=== PATIENT | female | born 1995 | race American Indian/Alaskan Native ===

== ENCOUNTER 2017-09-02 21:50 | Emergency (ER) | payer MEDICAID ==
[2017-09-02 22:01] VITALS: BP 112/64
[2017-09-03] MEDS ORDERED: TYLENOL/CODEINE PO ONE (02:12)
[2017-09-03] MEDS ORDERED: DELTASONE PO ONE (02:12)
--- NOTE | 2017-09-03 02:14 | Emergency Department Report ---
Minor Respiratory - HPI Chief Complaint: Upper Respiratory Infection Stated Complaint: FLU LIKE SX Time Seen by Provider: 09/03/17 02:11 Duration: 2 Days Severity: moderate Minor Respiratory: Yes Rhinorrhea, Yes Able to Tolerate Fluids, Yes Cough, Yes Chest Pain (with coughing), Yes Fever, No Sore Throat, No Ear Pain, No Sick Contacts ([employer]), No Hemoptysis, No Shortness of Breath Other History: Patient is a 22-year-old female states she works at a [employer] and the past couple of days as pain complaining of some intermittent nonproductive coughing and body aches. Patient states she noted she had a fever but did not measure. Patient also states she is able to drink fluids and eat okay. Patient states she thinks she got the flu vaccination but is unsure. She states that coughing become intermittent causing her some chest discomfort every time she coughs. She denies shortness of breath, nausea, vomiting, abdominal pain, chest pain, dizziness. ED Review of Systems ROS: Stated complaint: FLU LIKE SX Other details as noted in HPI Constitutional: fever, malaise. denies: chills Eyes: denies: eye pain, eye discharge, vision change ENT: congestion. denies: ear pain, throat pain Respiratory: cough. denies: shortness of breath, wheezing Cardiovascular: denies: chest pain, palpitations Endocrine: no symptoms reported Gastrointestinal: denies: abdominal pain, nausea, diarrhea Genitourinary: denies: urgency, dysuria, discharge Musculoskeletal: denies: back pain, joint swelling, arthralgia Skin: denies: rash, lesions Neurological: denies: headache, weakness, paresthesias Psychiatric: denies: anxiety, depression Hematological/Lymphatic: denies: easy bleeding, easy bruising ED Past Medical Hx - Past Medical History Previous Medical History?: Yes Hx Psychiatric Treatment: Yes (Depression) - Surgical History Past Surgical History?: No - Social History Smoking Status: Never Smoker Substance Use Type: None - Medications Home Medications: Home Medications Medication Instructions Recorded Confirmed Last Taken Type Acetamin/Codeine 120-12Mg/5 ml 5 ml PO TID PRN #60 ml 09/03/17 Unknown Rx [Tylenol/Codeine] Benzonatate [Tessalon Perles] 100 mg PO Q8HR #20 capsule 09/03/17 Unknown Rx guaiFENesin ER [Mucinex ER] 600 mg PO Q12H #24 tablet.er 09/03/17 Unknown Rx Minor Respiratory Exam - Exam General: Vital signs noted. No distress. Alert and acting appropriately. HEENT: Yes Moist Mucous Membranes, No Pharyngeal Erythema, No Pharyngeal Exudates, No Rhinorrhea, No Conjuctival Injection, No Frontal Tenderness, No Maxillary Tenderness Ear: Neither TM Bulge, Neither TM Erythema, Neither EAC Pain, Neither EAC Discharge Neck: Yes Supple, No Adenopathy Lungs: Yes Good Air Exchange, No Wheezes, No Ronchi, No Stridor, No Cough, No Labored Respirations, No Retractions, No Use of Accessory Muscles, No Other Abnormal Lung Sounds Heart: Yes Regular, No Murmur Abdomen: Yes Normal Bowel Sounds, No Tenderness, No Peritoneal Signs Skin: No Rash, No Edema Neurologic: Alert and oriented, no deficits. Musculoskeletal: Unremarkable. ED Course Vital Signs 09/02/17 21:55 Temperature 97.9 F Pulse Rate 96 H Respiratory 20 Rate Blood Pressure 112/64 O2 Sat by Pulse 99 Oximetry ED Medical Decision Making - Radiology Data Radiology results: report reviewed, image reviewed FINAL REPORT EXAM: XR CHEST ROUTINE 2V HISTORY: fever/cough TECHNIQUE: PA and lateral views of the chest were submitted. FINDINGS: The heart size and mediastinum appear normal. The lungs are clear. Pleural fluid is not seen. The bones and soft tissues are unremarkable. IMPRESSION: Within normal limits. Transcribed By: RB Dictated By: VIVIANA DELGADILLO MD Electronically Authenticated By: VIVIANA DELGADILLO MD Signed Date/Time: 09/02/17 8580 - Medical Decision Making 22-year-old female presents with flulike symptoms. Fever resolved no fever during the ED stay. cxr done in ED. UA/UPT negative. Discussed with pt symptomatic relief with [id number] medications. Discussed continue Motrin as needed for fever and pain. Discussed increase fluids and diet intake. Discussed rest much needed. Discussed daily vitamin C for immune booster. Discussed follow-up with early childhood in 3-5 days. Patient verbally states she understands and will comply the following instructions and follow-up Vital signs stable. Patient is in no acute distress Critical care attestation.: If time is entered above; I have spent that time in minutes in the direct care of this critically ill patient, excluding procedure time. ED Disposition Clinical Impression: Viral syndrome, Upper respiratory infection, Bronchitis Disposition: DC-01 TO HOME OR SELFCARE Is pt being admited?: No Does the pt Need Aspirin: No Condition: Stable Instructions: Upper Respiratory Infection (ED), Chronic Bronchitis (ED), Viral Syndrome (ED), Cold Symptoms (ED) Additional Instructions: Make sure to follow up with the primary care physician as discussed. Take all your medications as you've been prescribed. If you have any worsening symptoms or develop new symptoms please return to ED immediately. Prescriptions: Acetamin/Codeine 120-12Mg/5 ml [Tylenol/Codeine] 5 ml PO TID PRN #60 ml PRN Reason: Pain Benzonatate [Tessalon Perles] 100 mg PO Q8HR #20 capsule guaiFENesin ER [Mucinex ER] 600 mg PO Q12H #24 tablet.er Referrals: JANI RODRIGUEZ MD [Primary Care Provider] - 3-5 Days RORO SALINAS MD [Referring] - 3-5 Days [facility] [Outside] - 3-5 Days [facility] [Outside] - 3-5 Days [facility] [Outside] - 3-5 Days Forms: Accompanied Note, Work/School Release Form(ED) Time of Disposition: 03:58
[2017-09-03 03:15] LABS: Bilirubin,Urine NEG (Negative); Blood,Urine NEG (Negative); Color,Urine Yellow (Yellow); Hyaline Casts,Urine 1 /LPF; Mucus,Urine 3+ /HPF; Nitrite,Urine NEG (Negative)
[2017-09-03 03:17] LABS: HCG Qualitative,Urine Negative (Negative)
--- NOTE | 2017-09-03 03:34 | XRay Report ---
FINAL REPORT EXAM: XR CHEST ROUTINE 2V HISTORY: fever/cough TECHNIQUE: PA and lateral views of the chest were submitted. FINDINGS: The heart size and mediastinum appear normal. The lungs are clear. Pleural fluid is not seen. The bones and soft tissues are unremarkable. IMPRESSION: Within normal limits.
== END 2017-09-03 04:16 | disposition home or self-care (01) ==
LOC: ED 21:50
DX: B34.9 Viral infection, unspecified (principal); J40 Bronchitis, not specified as acute or chronic; J06.9 Acute upper respiratory infection, unspecified; F32.9 Major depressive disorder, single episode, unspecified
CPT/HCPCS: 71046; 81001; 81025; 99284; J7512

== ENCOUNTER 2017-12-29 13:51 | Emergency (ER) | payer MEDICAID ==
[2017-12-29 15:04] VITALS: BP 126/63
[2017-12-29] MEDS ORDERED: ZITHROMAX PO ONE (16:33)
[2017-12-29] MEDS ORDERED: ROCEPHIN IM ONE (16:33)
[2017-12-29] MEDS ORDERED: XYLOCAINE 1% MPF 5 mL INFILTRATI ONE (16:33)
[2017-12-29] MEDS ORDERED: FLAGYL PO ONE (16:33)
--- NOTE | 2017-12-29 16:38 | Emergency Department Report ---
ED Extremity Problem HPI - General Chief complaint: Extremity Injury, Lower Stated complaint: ANKLE PAIN Time Seen by Provider: 12/29/17 16:05 Source: patient Mode of arrival: Ambulatory Limitations: No Limitations - History of Present Illness Initial comments: Patient is a 22-year-old [place] female who tripped several days ago work and initially has some mild discomfort in her ankles. Patient states she is fine now but cannot return to work without medical clearance. Patient also has a mild vaginal discharge today and her boyfriend stated that he was diagnosed with STD. Patient states she is unsure which type. The patient was last missed her period within the last month. Patient denies any dysuria or fevers chills nausea vomiting. Regarding her ankles she is able to walk without pain there is no current swelling. - Related Data Previous Rx's Medication Instructions Recorded Last Taken Type Acetamin/Codeine 120-12Mg/5 ml 5 ml PO TID PRN #60 ml 09/03/17 Unknown Rx [Tylenol/Codeine] Benzonatate [Tessalon Perles] 100 mg PO Q8HR #20 capsule 09/03/17 Unknown Rx guaiFENesin ER [Mucinex ER] 600 mg PO Q12H #24 tablet.er 09/03/17 Unknown Rx Allergies Allergy/AdvReac Type Severity Reaction Status Date / Time No Known Allergies Allergy Unverified 09/02/17 22:01 ED Review of Systems ROS: Stated complaint: ANKLE PAIN Other details as noted in HPI Comment: All other systems reviewed and negative ED Past Medical Hx - Past Medical History Previous Medical History?: No Hx Psychiatric Treatment: Yes (Depression) - Surgical History Past Surgical History?: No - Social History Smoking Status: Current Every Day Smoker Substance Use Type: None - Medications Home Medications: Home Medications Medication Instructions Recorded Confirmed Last Taken Type Acetamin/Codeine 120-12Mg/5 ml 5 ml PO TID PRN #60 ml 09/03/17 Unknown Rx [Tylenol/Codeine] Benzonatate [Tessalon Perles] 100 mg PO Q8HR #20 capsule 09/03/17 Unknown Rx guaiFENesin ER [Mucinex ER] 600 mg PO Q12H #24 tablet.er 09/03/17 Unknown Rx ED Physical Exam - General Limitations: No Limitations General appearance: alert, in no apparent distress - Head Head exam: Present: atraumatic, normocephalic - Eye Eye exam: Present: normal appearance - ENT ENT exam: Present: mucous membranes moist - Neck Neck exam: Present: normal inspection - Respiratory Respiratory exam: Present: normal lung sounds bilaterally. Absent: respiratory distress, wheezes, rales, rhonchi - Cardiovascular Cardiovascular Exam: Present: regular rate, normal rhythm. Absent: systolic murmur, diastolic murmur, rubs, gallop - GI/Abdominal GI/Abdominal exam: Present: soft, normal bowel sounds. Absent: distended, tenderness, guarding, rebound - Extremities Exam Extremities exam: Present: normal inspection - Back Exam Back exam: Present: normal inspection - Neurological Exam Neurological exam: Present: alert, oriented X3 - Psychiatric Psychiatric exam: Present: normal affect, normal mood - Skin Skin exam: Present: warm, dry, intact, normal color. Absent: rash ED Course Vital Signs 12/29/17 14:59 Temperature 98.2 F Pulse Rate 106 H Respiratory 18 Rate Blood Pressure 126/63 O2 Sat by Pulse 98 Oximetry ED Medical Decision Making - Medical Decision Making Patient is medically cleared to go back to work. Patient also be treated for STD exposure Critical care attestation.: If time is entered above; I have spent that time in minutes in the direct care of this critically ill patient, excluding procedure time. ED Disposition Clinical Impression: Ankle sprain, STD exposure Disposition: DC-01 TO HOME OR SELFCARE Is pt being admited?: No Does the pt Need Aspirin: No Condition: Stable Instructions: Cervicitis (ED) Referrals: PRIMARY CARE, [Primary Care Provider] - 3-5 Days Forms: Work/School Release Form(ED)
== END 2017-12-29 17:21 | disposition home or self-care (01) ==
LOC: ED 13:51
DX: S93.401A Sprain of unspecified ligament of right ankle, initial encounter (principal); F32.9 Major depressive disorder, single episode, unspecified; F17.200 Nicotine dependence, unspecified, uncomplicated; W01.0XXA Fall on same level from slipping, tripping and stumbling without subsequent striking against object, initial encounter; Y93.89 Activity, other specified; Y99.8 Other external cause status; Y92.89 Other specified places as the place of occurrence of the external cause
CPT/HCPCS: 96372; 99282; J0696